=== PATIENT | female | born 1985 | race African-American/Black ===

== ENCOUNTER 2016-12-06 09:52 | Emergency (ER) | payer OTHER ==
[2016-12-06] MEDS ORDERED: IBUPROFEN 800 MG TAB As Ordered ONE (11:15)
[2016-12-06 12:26] LABS: BASO % 0.1 % (0.0-1.0); EOS % 1.1 % (0.0-3.0); LARGE UNSTAINED CELL # 0.1 K/mm3 (0.0-0.4); LARGE UNSTAINED CELL % 2.1 % (0.0-4.0); LYMPH # 0.5 K/mm3 (1.5-4.5); LYMPH % 14.4 % (24.0-44.0); MEAN CORPUSCULAR HEMOGLOBIN 29.9 pg (27.0-33.0); MEAN CORPUSCULAR HGB CONC 32.2 g/dl (32.0-36.5); MEAN CORPUSCULAR VOLUME 92.9 fl (80.0-96.0); MONO # 0.3 K/mm3 (0.0-0.8); MONO % 9.4 % (0.0-5.0); NEUTROPHILS # 2.3 K/mm3 (1.8-7.7); NEUTROPHILS % 72.8 % (36.0-66.0); PLATELET COUNT, AUTOMATED 188 k/mm3 (150-450); RED CELL DISTRIBUTION WIDTH 13.2 % (11.5-14.5); WHITE BLOOD COUNT 3.1 K/mm3 (4.0-10.0)
[2016-12-06 12:40] LABS: ANION GAP 7 MEQ/L (8-16); BLOOD UREA NITROGEN 7 MG/DL (7-18); CALCIUM LEVEL 8.6 MG/DL (8.5-10.1); CARBON DIOXIDE LEVEL 26 MEQ/L (21-32); CHLORIDE LEVEL 106 MEQ/L (98-107); CREATININE FOR GFR 0.74 MG/DL (0.55-1.02); GLOMERULAR FILTRATION RATE > 60.0 (>60); GLUCOSE, FASTING 88 MG/DL (70-105); POTASSIUM SERUM 4.3 MEQ/L (3.5-5.1); SODIUM LEVEL 139 MEQ/L (136-145)
--- NOTE | 2016-12-06 14:57 | EDDOCDS ---
Nurse's Notes [facility] Name: Hiwot Grimaldo Age: 31 yrs Sex: Female : 1985 Arrival Date: 12/06/2016 Time: 09:52 Bed PD Private MD: JUAN MANUEL Subramanian Diagnosis: Other ovarian cysts;Fever, unspecified-viral illness Presentation: 12/06 10:02 Presenting complaint: Patient states: pain in vagina and all over body. Cannot eat. hs1 Symptoms for 3 days. Adult Sepsis Screening: The patient does not have new or worsening altered mentation. Patient's respiratory rate is less than 22. Systolic blood pressure is greater than 100. Patient has a qSOFA score of 0- Negative Sepsis Screen. Suicide/Homicide risk assessment- the patient denies having any suicidal and/or homicidal ideations and does not present with any other emotional, behavioral or mental health complaints. Status: The patient is a dependent. Transition of care: patient was not received from another setting of care. 10:02 Acuity: ADAN Level 4 hs1 10:02 Method Of Arrival: Walkin/Carried/Asstd hs1 Triage Assessment: 10:04 General: Appears in no apparent distress, Behavior is appropriate for age. Pain: hs1 Location: all over and vagina Pain currently is 8 out of 10 on a pain scale. Pt Declines HIV testing. Respiratory: Airway is patent Reports cough that is productive. : Reports pain in vagina. Derm: Skin is pink, warm & dry. normal. 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 Tylenol 325 mg Oral tab 2 tabs every 4-6 hours (Last dose: 12/05/2016 21:00) - PMHx: none; - PSHx: none; - Social history: Smoking status: Patient states was never smoker of tobacco. No barriers to communication noted, The patient speaks fluent Cambodian, Speaks appropriately for age. - Family history: Not pertinent. - : The pt / caregiver states he / she is not on anticoagulants. Home medication list is obtained from the patient. - Exposure Risk Screening:: None identified. Screenin:55 Screening information is obtained from the patient. Fall risk: No risks identified. mlb1 Assistance ADL's: requires no assistance with activities of daily living. Abuse/DV Screen: The patient / caregiver reports he/she is: not in a situation that causes fear, pain or injury. Nutritional screening: No deficits noted. Advance Directives: Currently, there is no health care proxy. home support is adequate. Assessment: 11:22 General: Appears in no apparent distress, well nourished, well groomed, Behavior is ttb appropriate for age, cooperative, pleasant, quiet. Neurological: Level of Consciousness is awake, alert. Respiratory: Airway is patent Respiratory effort is even, unlabored, Reports cough that is. Derm: Skin is normal. 14:55 General: Appears in no apparent distress, comfortable, Behavior is appropriate for age, mlb1 cooperative. Pain: Denies pain. Neurological: No deficits noted. Respiratory: Airway is patent Respiratory effort is even, unlabored. Vital Signs: 09:54 BP 139 / 79 RA Sitting (auto/reg); Pulse 84; Resp 20; Temp 101.1(O); Pulse Ox 100% on jrd R/A; Weight 81.65 kg (R); Height 5 ft. 7 in. (170.18 cm); Pain 8/10; 14:55 BP 129 / 77; Pulse 84; Resp 16; Temp 98.0(T); Pulse Ox 98% on R/A; Pain 0/10; mlb1 09:54 Body Mass Index 28.19 (81.65 kg, 170.18 cm) [facility] Vitals: 09:54 Log In Time: December 06, 2016 at 09:45. [facility] ED Course: 09:53 Patient visited by Xavier Starr PCA. jrd 09:53 Patient moved to Waiting jrd 09:54 [facility]. jrd 09:55 Patient visited by Xavier Starr PCA. jrd 09:55 Patient moved to Pre RCE jrd 10:03 Triage Initiated hs1 11:04 Patient moved to Triage 1 ct3 11:18 Urine Culture Sent. ttb 11:18 Urinalysis Sent. ttb 11:22 Patient visited by Helen Riddle RN. ttb 11:23 Patient visited by Helen Riddle RN. ttb 11:28 [facility] ar2 11:28 Kit Smith MD is Attending Physician. ar2 11:28 Patient visited by Estevan López PA-C. ar2 11:57 Patient moved to PD mlb1 11:59 -Influenza A&B Rapid Antigen - Nose Sent. ttb 12:05 Patient visited by Helen Riddle RN. ttb 12:45 Patient visited by Lacey Strange PCA. ct3 12:47 [facility] Payment Agreement was scanned into [employer] and attached to record. mm15 13:15 Patient visited by Lacey Strange PCA. ct3 13:31 GC & Chlamydia Amplification Sent. ct3 13:31 Wet Prep Sent. ct3 13:57 Patient moved to Ultrasound sm5 14:23 Patient moved to PD sm5 14:25 Patient visited by Lacey Strange PCA. ct3 14:48 [facility] [place] Physician. ar2 14:56 No IV's were initiated during this patient's visit. No procedures done that require mlb1 assistance. 14:57 Patient visited by Desmond Bernal RN. mlb1 14:57 The patient / caregiver is instructed regarding the plan of care and ED course. mlb1 Administered Medications: 11:15 Drug: Ibuprofen 800 mg [ibuprofen 800 mg tablet (1 tabs)] Route: PO; ttb Point of Care Testing: Urine : 11:17 hCG Reading: Negative; Control Reading: Positive; ttb Ranges: Order Results: Lab Order: Urinalysis; SPEC'M 12/06/16 11:11 Test: APPEARANCE, URINE; Value: CLEAR; Range: CLEAR; Status: F Test: COLOR, URINE; Value: YELLOW; Range: YELLOW; Status: F Test: PH,URINE; Value: 7.0; Range: 5.0-9.0; Units: UNITS; Status: F Test: SPECIFIC GRAVITY URINE AUTO; Value: 1.023; Range: 1.002-1.035; Status: F Test: PROTEIN, URINE AUTO; Value: 1+; Range: NEGATIVE; Abnormal: Above high normal; Units: mg/dL; Status: F Test: GLUCOSE, URINE (UA) AUTO; Value: NEGATIVE; Range: NEGATIVE; Units: mg/dL; Status: F Test: KETONE, URINE AUTO; Value: NEGATIVE; Range: NEGATIVE; Units: mg/dL; Status: F Test: UROBILINOGEN, URINE AUTO; Value: 0.2; Range: 0.0-2.0; Units: mg/dL; Status: F Test: BILIRUBIN, URINE AUTO; Value: NEGATIVE; Range: NEGATIVE; Status: F Test: NITRITE, URINE AUTO; Value: NEGATIVE; Range: NEGATIVE; Status: F Test: LEUKOCYTE ESTERASE, URINE AUTO; Value: NEGATIVE; Range: NEGATIVE; Status: F Test: BLOOD, URINE BLOOD; Value: NEGATIVE; Range: NEGATIVE; Status: F Test: WBC, URINE AUTO; Value: 0; Range: 0-3; Units: /HPF; Status: F Test: RBC, URINE AUTO; Value: 1; Range: 0-3; Units: /HPF; Status: F Test: BACTERIA, URINE AUTO; Value: NEGATIVE; Range: NEGATIVE; Status: F Test: SQUAMOUS EPITHELIAL CELL UR AU; Value: 1; Range: 0-6; Units: /HPF; Status: F Test: MUCUS, URINE; Value: SMALL; Range: NEGATIVE; Status: F Test: HYALINE CAST, URINE AUTO; Value: 0; Range: 0-1; Units: /LPF; Status: F Lab Order: -Influenza A&B Rapid Antigen - Nose; SPEC'M 12/06/16 11:57 Test: INFLUENZA A RAPID SCR by ICA; Value: INFLUENZA A RESULTS NEGATIVE; Status: F Test: INFLUENZA A RAPID SCR by ICA; Value: Comments:; Status: F Test: INFLUENZA B RAPID SCR by ICA; Value: INFLUENZA B RESULTS NEGATIVE; Status: F Test Note: ; The Influenza test is a direct rapid immunoassay for the qualitative detection of Influenza viral antigen. Cell culture (Viral Culture) testing should be considered to confirm NEGATIVE results and to assist in detecting other viruses that can provide similar clinical symptoms. Please contact the lab within 24 hours ([phone]) if confirmatory testing is desired. Lab Order: CBC with Diff; SPEC'M 12/06/16 12:01 Test: WHITE BLOOD COUNT; Value: 3.1; Range: 4.0-10.0; Abnormal: Below low normal; Units: K/mm3; Status: F Test: RED BLOOD COUNT; Value: 3.67; Range: 4.00-5.40; Abnormal: Below low normal; Units: M/mm3; Status: F Test: HEMOGLOBIN; Value: 11.0; Range: 12.0-16.0; Abnormal: Below low normal; Units: g/dl; Status: F Test: HEMATOCRIT; Value: 34.1; Range: 36.0-47.0; Abnormal: Below low normal; Units: %; Status: F Test: MEAN CORPUSCULAR VOLUME; Value: 92.9; Range: 80.0-96.0; Units: fl; Status: F Test: MEAN CORPUSCULAR HEMOGLOBIN; Value: 29.9; Range: 27.0-33.0; Units: pg; Status: F Test: MEAN CORPUSCULAR HGB CONC; Value: 32.2; Range: 32.0-36.5; Units: g/dl; Status: F Test: RED CELL DISTRIBUTION WIDTH; Value: 13.2; Range: 11.5-14.5; Units: %; Status: F Test: PLATELET COUNT, AUTOMATED; Value: 188; Range: 150-450; Units: k/mm3; Status: F Test: NEUTROPHILS %; Value: 72.8; Range: 36.0-66.0; Abnormal: Above high normal; Units: %; Status: F Test: LYMPH %; Value: 14.4; Range: 24.0-44.0; Abnormal: Below low normal; Units: %; Status: F Test: MONO %; Value: 9.4; Range: 0.0-5.0; Abnormal: Above high normal; Units: %; Status: F Test: EOS %; Value: 1.1; Range: 0.0-3.0; Units: %; Status: F Test: BASO %; Value: 0.1; Range: 0.0-1.0; Units: %; Status: F Test: LARGE UNSTAINED CELL %; Value: 2.1; Range: 0.0-4.0; Units: %; Status: F Test: NEUTROPHILS #; Value: 2.3; Range: 1.8-7.7; Units: K/mm3; Status: F Test: LYMPH #; Value: 0.5; Range: 1.5-4.5; Abnormal: Below low normal; Units: K/mm3; Status: F Test: MONO #; Value: 0.3; Range: 0.0-0.8; Units: K/mm3; Status: F Test: EOS #; Value: 0.0; Range: 0.0-0.50; Units: K/mm3; Status: F Test: BASO #; Value: 0.0; Range: 0.0-0.2; Units: K/mm3; Status: F Test: LARGE UNSTAINED CELL #; Value: 0.1; Range: 0.0-0.4; Units: K/mm3; Status: F Lab Order: MED Profile; SPEC'M 12/06/16 12:01 Test: GLUCOSE, FASTING; Value: 88; Range: 70-105; Units: MG/DL; Status: F Test: BLOOD UREA NITROGEN; Value: 7; Range: 7-18; Units: MG/DL; Status: F Test: CREATININE FOR GFR; Value: 0.74; Range: 0.55-1.02; Units: MG/DL; Status: F Test: GLOMERULAR FILTRATION RATE; Value: > 60.0; Range: >60; Status: F Test: SODIUM LEVEL; Value: 139; Range: 136-145; Units: MEQ/L; Status: F Test: POTASSIUM SERUM; Value: 4.3; Range: 3.5-5.1; Units: MEQ/L; Status: F Test: CHLORIDE LEVEL; Value: 106; Range: 98-107; Units: MEQ/L; Status: F Test: CARBON DIOXIDE LEVEL; Value: 26; Range: 21-32; Units: MEQ/L; Status: F Test: ANION GAP; Value: 7; Range: 8-16; Abnormal: Below low normal; Units: MEQ/L; Status: F Test: CALCIUM LEVEL; Value: 8.6; Range: 8.5-10.1; Units: MG/DL; Status: F Test Note: ; Units are mL/min/1.73 m2 Chronic Kidney Disease Staging per NKF: Stage I & II GFR >=60 Normal to Mildly Decreased Stage III GFR 30-59 Moderately Decreased Stage IV GFR 15-29 Severely Decreased Stage V GFR <15 Very Little GFR Left ESRD GFR <15 on NANOTECHNOLOGIST Lab Order: Wet Prep; SPEC'12/06/16 13:28 Test: WET PREP; Value: WET PREP RESULT; Status: F Test: WET PREP; Value: MODERATE EPITHELIAL CELLS PRESENT; Status: F Test: WET PREP; Value: MANY SHORT RODS PRESENT; Status: F Outcome: 14:48 Discharge ordered by Provider. ar2 14:56 Discharge Assessment: Patient awake, alert and oriented x 3. No cognitive and/or mlb1 functional deficits noted. Patient verbalized understanding of disposition instructions. Discharge Assessment: patient administered narcotics - no. The following High Risk Discharge criteria are identified:. Discharged to home ambulatory, with family. Condition: good. Discharge instructions given to patient, Instructed on discharge instructions, follow up and referral plans. medication usage, Demonstrated understanding of instructions, medications, Pt was receptive of discharge instructions/ teaching. Prescriptions given X 1. Ultrasound Study completed. Property sent home with patient. 14:57 Patient left the ED. mlb1 Signatures: Miracle Garcia sm5 Desmond Bernal RN RN mlb1 Estevan Lpóez, PA-C PA-C ar2 Sondra Mc RN RN hs1 Lacey Strange, MEDICAL ASSEMBLY MEDICAL ASSEMBLY ct3 Helen Riddle RN RN ttb Loraine Agosto mm15 Xavier Starr, MEDICAL ASSEMBLY MEDICAL ASSEMBLY jrd [facility]
--- NOTE | 2016-12-06 14:57 | EDDOCDS ---
Physician Documentation [facility] Name: Hiwot Grimaldo Age: 31 yrs Sex: Female : 1985 Arrival Date: 12/06/2016 Time: 09:52 Bed PD Private MD: JUAN MANUEL Subramanian Disposition: 12/06/16 14:48 Discharged to Home/Self Care. Impression: Other ovarian cysts, Fever, unspecified - viral illness. - Condition is Stable. - Discharge Instructions: Ovarian Cyst, Viral Infections. - Prescriptions for Ibuprofen 800 mg Oral Tablet - take 1 tablet by ORAL route every 8 hours As needed take with food; 30 tablet. - Medication Reconciliation, Local Pharmacy Hours form. - Follow up: JUAN MANUEL Subramanian; When: Call to arrange an appointment; Reason: Recheck today's complaints. - Problem is new. - Symptoms are unchanged. Historical: - Allergies: no known allergies; - Home Meds: 1. Tylenol 325 mg Oral tab 2 tabs every 4-6 hours (Last dose: 12/05/2016 21:00) - PMHx: none; - PSHx: none; - Social history: Smoking status: Patient states was never smoker of tobacco. No barriers to communication noted, The patient speaks fluent Kittitian, Speaks appropriately for age. - Family history: Not pertinent. - : The pt / caregiver states he / she is not on anticoagulants. Home medication list is obtained from the patient. - Exposure Risk Screening:: None identified. 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 7 in. (170.18 cm); Pain 8/10; 14:55 BP 129 / 77; Pulse 84; Resp 16; Temp 98.0(T); Pulse Ox 98% on R/A; Pain 0/10; mlb1 09:54 Body Mass Index 28.19 (81.65 kg, 170.18 cm) jrd MDM: 10:06 UCG by Nursing ordered. dt4 10:07 Ibuprofen 800 mg PO once ordered. dt4 10:08 Urinalysis Ordered. EDMS 10:08 Urine Culture Ordered. EDMS 11:38 Urinalysis Reviewed. ar2 11:49 Obtain sample by nasopharyngeal swab ordered. ar2 11:50 CBC with Diff Ordered. EDMS 11:50 MED Profile Ordered. EDMS 11:50 -Influenza A&B Rapid Antigen - Nose Ordered. EDMS 12:17 Financial registration complete. mm15 12:34 Set up pelvic ordered. ar2 12:35 Wet Prep Ordered. EDMS 12:35 GC & Chlamydia Amplification Ordered. EDMS 12:47 [facility] Payment Agreement was scanned into [employer] and attached to record. mm15 13:18 CBC with Diff Reviewed. ar2 13:18 MED Profile Reviewed. ar2 13:18 -Influenza A&B Rapid Antigen - Nose Reviewed. ar2 13:34 -US Pelvic Non-Ob Complete Ordered. EDMS 13:34 DUPLEX SCAN LIMITED (DOPPLER)+US Ordered. EDMS 14:26 Transvaginal NON- US Ordered. EDMS 14:49 Wet Prep Reviewed. ar2 Point of Care Testing: Urine : 11:17 hCG Reading: Negative; Control Reading: Positive; ttb Ranges: Administered Medications: 11:15 Drug: Ibuprofen 800 mg [ibuprofen 800 mg tablet (1 tabs)] Route: PO; ttb Signatures: Dispatcher [employer] EDMD Desmond Bernal RN RN mlb1 Estevan López PA-C PAWesley ar2 Sondra Mc RN RN hs1 Loraine Agosto mm15 Nieves Jefferson PA-C PA-C dt4 Helen Riddle RN ttb The chart was reviewed and I authenticate all verbal orders and agree with the evaluation and treatment provided.Attachments: 12:47 [facility] Payment Agreement mm15 MTDD
--- NOTE | 2016-12-06 15:19 | REP ---
PELVIC SONOGRAPHY: HISTORY: Left adnexal pain. FINDINGS: Transabdominal and transvaginal scanning are performed. Uterine dimensions are enlarged at 10.0 x 5.6 x 6.1 cm. Endometrial echo is 0.9 cm thick. Uterine texture is heterogeneous, but no measurable fibroid is seen. Visualized bladder drummond are smooth. There is a trace of fluid in the posterior cul-de-sac and adjacent to the right ovary. Right ovarian dimensions are 4.2 x 2.5 x 3.5 cm. Its Doppler flow is normal with resistive index 0.58. There is a 2.1 x 1.6 x 1.6 cm hypoechoic cyst in the right ovary, question hemorrhagic cyst. The left ovary is normal measuring 3.5 x 2.4 x 3.0 cm. IMPRESSION: Enlarged heterogeneous uterus. No measurable fibroid. 2.1 cm hypoechoic cystic area right ovary. Minimal fluid in the cul-de-sac. No other significant abnormality. Signed by Adriel Oliveira MD 12/06/2016 04:34 P
--- NOTE | 2016-12-08 15:57 | EDDOCDS ---
Physician Documentation [facility] Name: Hiwot Grimaldo Age: 31 yrs Sex: Female : 1985 Arrival Date: 12/06/2016 Time: 09:52 Bed PD Private MD: JUAN MANUEL Subramanian Disposition: 12/06/16 14:48 Discharged to Home/Self Care. Impression: Other ovarian cysts, Fever, unspecified - viral illness. - Condition is Stable. - Discharge Instructions: Ovarian Cyst, Viral Infections. - Prescriptions for Ibuprofen 800 mg Oral Tablet - take 1 tablet by ORAL route every 8 hours As needed take with food; 30 tablet. - Medication Reconciliation, Local Pharmacy Hours form. - Follow up: JUAN MANUEL Subramanian; When: Call to arrange an appointment; Reason: Recheck today's complaints. - Problem is new. - Symptoms are unchanged. Historical: - Allergies: no known allergies; - Home Meds: 1. Tylenol 325 mg Oral tab 2 tabs every 4-6 hours (Last dose: 12/05/2016 21:00) - PMHx: none; - PSHx: none; - Social history: Smoking status: Patient states was never smoker of tobacco. No barriers to communication noted, The patient speaks fluent German, Speaks appropriately for age. - Family history: Not pertinent. - : The pt / caregiver states he / she is not on anticoagulants. Home medication list is obtained from the patient. - Exposure Risk Screening:: None identified. ACCOUNT RESOLUTION SPECIALIST: 12/06 10:05 LMP 11/17/2016 hs1 Vital Signs: 09:54 BP 139 / 79 RA Sitting (auto/reg); Pulse 84; Resp 20; Temp 101.1(O); Pulse Ox 100% on jrd R/A; Weight 81.65 kg / 180.01 lbs (R); Height 5 ft. 7 in. (170.18 cm); Pain 8/10; 14:55 BP 129 / 77; Pulse 84; Resp 16; Temp 98.0(T); Pulse Ox 98% on R/A; Pain 0/10; mlb1 09:54 Body Mass Index 28.19 (81.65 kg, 170.18 cm) jrd MDM: 10:06 UCG by Nursing ordered. dt4 10:07 Ibuprofen 800 mg PO once ordered. dt4 10:08 Urinalysis Ordered. EDMS 10:08 Urine Culture Ordered. EDMS 11:38 Urinalysis Reviewed. ar2 11:49 Obtain sample by nasopharyngeal swab ordered. ar2 11:50 CBC with Diff Ordered. EDMS 11:50 MED Profile Ordered. EDMS 11:50 -Influenza A&B Rapid Antigen - Nose Ordered. EDMS 12:17 Financial registration complete. mm15 12:34 Set up pelvic ordered. ar2 12:35 Wet Prep Ordered. EDMS 12:35 GC & Chlamydia Amplification Ordered. EDMS 12:47 [facility] Payment Agreement was scanned into [employer] and attached to record. mm15 13:18 CBC with Diff Reviewed. ar2 13:18 MED Profile Reviewed. ar2 13:18 -Influenza A&B Rapid Antigen - Nose Reviewed. ar2 13:34 -US Pelvic Non-Ob Complete Ordered. EDMS 13:34 DUPLEX SCAN LIMITED (DOPPLER)+US Ordered. EDMS 14:26 Transvaginal NON- US Ordered. EDMS 14:49 Wet Prep Reviewed. ar2 12/07 10:29 T-Sheet-- Draft Copy was scanned into [employer] and attached to record. gb Point of Care Testing: Urine : 12/06 11:17 hCG Reading: Negative; Control Reading: Positive; ttb Ranges: Administered Medications: 11:15 Drug: Ibuprofen 800 mg [ibuprofen 800 mg tablet (1 tabs)] Route: PO; ttb Signatures: Dispatcher [employer] EDFL Maria Luz Selby, Reg Reg gb Desmond Bernal RN RN mlb1 Estevan López PA-C PA-C ar2 Sondra Mc RN RN hs1 Loraine Agosto mm15 Nieves Jefferson PA-C PAWesley dt4 Helen Riddle RN ttb The chart was reviewed and I authenticate all verbal orders and agree with the evaluation and treatment provided.Attachments: 12:47 [facility] Payment Agreement mm15 12/07 10:29 T-Sheet-- Draft Copy gb Chart Complete MTDD
--- NOTE | 2016-12-08 15:57 | EDDOCDS ---
Nurse's Notes [facility] Name: Hiwot Grimaldo Age: 31 yrs Sex: Female : 1985 Arrival Date: 12/06/2016 Time: 09:52 Bed PD Private MD: JUAN MANUEL Subramanian Diagnosis: Other ovarian cysts;Fever, unspecified-viral illness Presentation: 12/06 10:02 Presenting complaint: Patient states: pain in vagina and all over body. Cannot eat. hs1 Symptoms for 3 days. Adult Sepsis Screening: The patient does not have new or worsening altered mentation. Patient's respiratory rate is less than 22. Systolic blood pressure is greater than 100. Patient has a qSOFA score of 0- Negative Sepsis Screen. Suicide/Homicide risk assessment- the patient denies having any suicidal and/or homicidal ideations and does not present with any other emotional, behavioral or mental health complaints. Status: The patient is a dependent. Transition of care: patient was not received from another setting of care. 10:02 Acuity: ADAN Level 4 hs1 10:02 Method Of Arrival: Walkin/Carried/Asstd hs1 Triage Assessment: 10:04 General: Appears in no apparent distress, Behavior is appropriate for age. Pain: hs1 Location: all over and vagina Pain currently is 8 out of 10 on a pain scale. Pt Declines HIV testing. Respiratory: Airway is patent Reports cough that is productive. : Reports pain in vagina. Derm: Skin is pink, warm & dry. normal. 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 Tylenol 325 mg Oral tab 2 tabs every 4-6 hours (Last dose: 12/05/2016 21:00) - PMHx: none; - PSHx: none; - Social history: Smoking status: Patient states was never smoker of tobacco. No barriers to communication noted, The patient speaks fluent Bangladeshi, Speaks appropriately for age. - Family history: Not pertinent. - : The pt / caregiver states he / she is not on anticoagulants. Home medication list is obtained from the patient. - Exposure Risk Screening:: None identified. Screenin:55 Screening information is obtained from the patient. Fall risk: No risks identified. mlb1 Assistance ADL's: requires no assistance with activities of daily living. Abuse/DV Screen: The patient / caregiver reports he/she is: not in a situation that causes fear, pain or injury. Nutritional screening: No deficits noted. Advance Directives: Currently, there is no health care proxy. home support is adequate. Assessment: 11:22 General: Appears in no apparent distress, well nourished, well groomed, Behavior is ttb appropriate for age, cooperative, pleasant, quiet. Neurological: Level of Consciousness is awake, alert. Respiratory: Airway is patent Respiratory effort is even, unlabored, Reports cough that is. Derm: Skin is normal. 14:55 General: Appears in no apparent distress, comfortable, Behavior is appropriate for age, mlb1 cooperative. Pain: Denies pain. Neurological: No deficits noted. Respiratory: Airway is patent Respiratory effort is even, unlabored. Vital Signs: 09:54 BP 139 / 79 RA Sitting (auto/reg); Pulse 84; Resp 20; Temp 101.1(O); Pulse Ox 100% on jrd R/A; Weight 81.65 kg (R); Height 5 ft. 7 in. (170.18 cm); Pain 8/10; 14:55 BP 129 / 77; Pulse 84; Resp 16; Temp 98.0(T); Pulse Ox 98% on R/A; Pain 0/10; mlb1 09:54 Body Mass Index 28.19 (81.65 kg, 170.18 cm) [facility] Vitals: 09:54 Log In Time: December 06, 2016 at 09:45. [facility] ED Course: 09:53 Patient visited by Xavier Starr PCA. jrd 09:53 Patient moved to Waiting jrd 09:54 Marilynn [facility] is Private Physician. jrd 09:55 Patient visited by Xavier Starr PCA. jrd 09:55 Patient moved to Pre RCE jrd 10:03 Triage Initiated hs1 11:04 Patient moved to Triage 1 ct3 11:18 Urine Culture Sent. ttb 11:18 Urinalysis Sent. ttb 11:22 Patient visited by Helen Riddle RN. ttb 11:23 Patient visited by Helen Riddle RN. ttb 11:28 [facility]ev[facility] ar2 11:28 Kit Smith MD is Attending Physician. ar2 11:28 Patient visited by Estevan López PA-C. ar2 11:57 Patient moved to PD mlb1 11:59 -Influenza A&B Rapid Antigen - Nose Sent. ttb 12:05 Patient visited by Helen Riddle RN. ttb 12:45 Patient visited by Lacey Strange PCA. ct3 12:47 [facility] Payment Agreement was scanned into [employer] and attached to record. mm15 13:15 Patient visited by Lacey Strange PCA. ct3 13:31 GC & Chlamydia Amplification Sent. ct3 13:31 Wet Prep Sent. ct3 13:57 Patient moved to Ultrasound sm5 14:23 Patient moved to PD sm5 14:25 Patient visited by Lacey Strange PCA. ct3 14:48 Marilynn [facility] is Referral Physician. ar2 14:56 No IV's were initiated during this patient's visit. No procedures done that require mlb1 assistance. 14:57 Patient visited by Desmond Bernal RN. mlb1 14:57 The patient / caregiver is instructed regarding the plan of care and ED course. mlb1 15:33 -US Pelvic Non-Ob Complete Returned. EDMS 15:33 DUPLEX SCAN LIMITED (DOPPLER)+US Returned. EDMS 15:33 Transvaginal NON- US Returned. EDMS 12/07 10:29 T-Sheet-- Draft Copy was scanned into [email or web address] and attached to record. gb Administered Medications: 12/06 11:15 Drug: Ibuprofen 800 mg [ibuprofen 800 mg tablet (1 tabs)] Route: PO; ttb Point of Care Testing: Urine : 11:17 hCG Reading: Negative; Control Reading: Positive; ttb Ranges: Order Results: Lab Order: Urinalysis; SPEC'M 12/06/16 11:11 Test: APPEARANCE, URINE; Value: CLEAR; Range: CLEAR; Status: F Test: COLOR, URINE; Value: YELLOW; Range: YELLOW; Status: F Test: PH,URINE; Value: 7.0; Range: 5.0-9.0; Units: UNITS; Status: F Test: SPECIFIC GRAVITY URINE AUTO; Value: 1.023; Range: 1.002-1.035; Status: F Test: PROTEIN, URINE AUTO; Value: 1+; Range: NEGATIVE; Abnormal: Above high normal; Units: mg/dL; Status: F Test: GLUCOSE, URINE (UA) AUTO; Value: NEGATIVE; Range: NEGATIVE; Units: mg/dL; Status: F Test: KETONE, URINE AUTO; Value: NEGATIVE; Range: NEGATIVE; Units: mg/dL; Status: F Test: UROBILINOGEN, URINE AUTO; Value: 0.2; Range: 0.0-2.0; Units: mg/dL; Status: F Test: BILIRUBIN, URINE AUTO; Value: NEGATIVE; Range: NEGATIVE; Status: F Test: NITRITE, URINE AUTO; Value: NEGATIVE; Range: NEGATIVE; Status: F Test: LEUKOCYTE ESTERASE, URINE AUTO; Value: NEGATIVE; Range: NEGATIVE; Status: F Test: BLOOD, URINE BLOOD; Value: NEGATIVE; Range: NEGATIVE; Status: F Test: WBC, URINE AUTO; Value: 0; Range: 0-3; Units: /HPF; Status: F Test: RBC, URINE AUTO; Value: 1; Range: 0-3; Units: /HPF; Status: F Test: BACTERIA, URINE AUTO; Value: NEGATIVE; Range: NEGATIVE; Status: F Test: SQUAMOUS EPITHELIAL CELL UR AU; Value: 1; Range: 0-6; Units: /HPF; Status: F Test: MUCUS, URINE; Value: SMALL; Range: NEGATIVE; Status: F Test: HYALINE CAST, URINE AUTO; Value: 0; Range: 0-1; Units: /LPF; Status: F Lab Order: Urine Culture; SPEC'M 12/06/16 11:11 Test: URINE CULTURE; Value: <EXTERNAL COMMENT eCWMed> FULL REPORT IN LAB NOTES (eCW and Medent).; Status: F Test: URINE CULTURE; Value: URINE CULTURE RESULT NO GROWTH; Status: F Lab Order: -Influenza A&B Rapid Antigen - Nose; SPEC'M 12/06/16 11:57 Test: INFLUENZA A RAPID SCR by ICA; Value: INFLUENZA A RESULTS NEGATIVE; Status: F Test: INFLUENZA A RAPID SCR by ICA; Value: Comments:; Status: F Test: INFLUENZA B RAPID SCR by ICA; Value: INFLUENZA B RESULTS NEGATIVE; Status: F Test Note: ; The Influenza test is a direct rapid immunoassay for the qualitative detection of Influenza viral antigen. Cell culture (Viral Culture) testing should be considered to confirm NEGATIVE results and to assist in detecting other viruses that can provide similar clinical symptoms. Please contact the lab within 24 hours ([phone]) if confirmatory testing is desired. Lab Order: CBC with Diff; SPEC'M 12/06/16 12:01 Test: WHITE BLOOD COUNT; Value: 3.1; Range: 4.0-10.0; Abnormal: Below low normal; Units: K/mm3; Status: F Test: RED BLOOD COUNT; Value: 3.67; Range: 4.00-5.40; Abnormal: Below low normal; Units: M/mm3; Status: F Test: HEMOGLOBIN; Value: 11.0; Range: 12.0-16.0; Abnormal: Below low normal; Units: g/dl; Status: F Test: HEMATOCRIT; Value: 34.1; Range: 36.0-47.0; Abnormal: Below low normal; Units: %; Status: F Test: MEAN CORPUSCULAR VOLUME; Value: 92.9; Range: 80.0-96.0; Units: fl; Status: F Test: MEAN CORPUSCULAR HEMOGLOBIN; Value: 29.9; Range: 27.0-33.0; Units: pg; Status: F Test: MEAN CORPUSCULAR HGB CONC; Value: 32.2; Range: 32.0-36.5; Units: g/dl; Status: F Test: RED CELL DISTRIBUTION WIDTH; Value: 13.2; Range: 11.5-14.5; Units: %; Status: F Test: PLATELET COUNT, AUTOMATED; Value: 188; Range: 150-450; Units: k/mm3; Status: F Test: NEUTROPHILS %; Value: 72.8; Range: 36.0-66.0; Abnormal: Above high normal; Units: %; Status: F Test: LYMPH %; Value: 14.4; Range: 24.0-44.0; Abnormal: Below low normal; Units: %; Status: F Test: MONO %; Value: 9.4; Range: 0.0-5.0; Abnormal: Above high normal; Units: %; Status: F Test: EOS %; Value: 1.1; Range: 0.0-3.0; Units: %; Status: F Test: BASO %; Value: 0.1; Range: 0.0-1.0; Units: %; Status: F Test: LARGE UNSTAINED CELL %; Value: 2.1; Range: 0.0-4.0; Units: %; Status: F Test: NEUTROPHILS #; Value: 2.3; Range: 1.8-7.7; Units: K/mm3; Status: F Test: LYMPH #; Value: 0.5; Range: 1.5-4.5; Abnormal: Below low normal; Units: K/mm3; Status: F Test: MONO #; Value: 0.3; Range: 0.0-0.8; Units: K/mm3; Status: F Test: EOS #; Value: 0.0; Range: 0.0-0.50; Units: K/mm3; Status: F Test: BASO #; Value: 0.0; Range: 0.0-0.2; Units: K/mm3; Status: F Test: LARGE UNSTAINED CELL #; Value: 0.1; Range: 0.0-0.4; Units: K/mm3; Status: F Lab Order: MED Profile; [facility] 12/06/16 12:01 Test: GLUCOSE, FASTING; Value: 88; Range: 70-105; Units: MG/DL; Status: F Test: BLOOD UREA NITROGEN; Value: 7; Range: 7-18; Units: MG/DL; Status: F Test: CREATININE FOR GFR; Value: 0.74; Range: 0.55-1.02; Units: MG/DL; Status: F Test: GLOMERULAR FILTRATION RATE; Value: > 60.0; Range: >60; Status: F Test: SODIUM LEVEL; Value: 139; Range: 136-145; Units: MEQ/L; Status: F Test: POTASSIUM SERUM; Value: 4.3; Range: 3.5-5.1; Units: MEQ/L; Status: F Test: CHLORIDE LEVEL; Value: 106; Range: 98-107; Units: MEQ/L; Status: F Test: CARBON DIOXIDE LEVEL; Value: 26; Range: 21-32; Units: MEQ/L; Status: F Test: ANION GAP; Value: 7; Range: 8-16; Abnormal: Below low normal; Units: MEQ/L; Status: F Test: CALCIUM LEVEL; Value: 8.6; Range: 8.5-10.1; Units: MG/DL; Status: F Test Note: ; Units are mL/min/1.73 m2 Chronic Kidney Disease Staging per NKF: Stage I & II GFR >=60 Normal to Mildly Decreased Stage III GFR 30-59 Moderately Decreased Stage IV GFR 15-29 Severely Decreased Stage V GFR <15 Very Little GFR Left ESRD GFR <15 on AUTHOR AGENT Lab Order: Wet Prep; SPEC'M 12/06/16 13:28 Test: WET PREP; Value: WET PREP RESULT; Status: F Test: WET PREP; Value: MODERATE EPITHELIAL CELLS PRESENT; Status: F Test: WET PREP; Value: MANY SHORT RODS PRESENT; Status: F Lab Order: GC & Chlamydia Amplification; SPEC'M 12/06/16 13:28 Test: CHLAMYDIA DNA AMPLIFICATION; Value: NEGATIVE; Range: NEGATIVE; Status: F Test: GC DNA AMPLIFICATION; Value: NEGATIVE; Range: NEGATIVE; Status: F Radiology Order: -US Pelvic Non-Ob Complete Test: -US Pelvic Non-Ob Complete REASON FOR EXAMINATION: left adenexal pain; PELVIC SONOGRAPHY:; ; HISTORY: Left adnexal pain.; ; FINDINGS: Transabdominal and transvaginal scanning are performed. Uterine; dimensions are enlarged at 10.0 x 5.6 x 6.1 cm. Endometrial echo is 0.9 cm; thick. Uterine texture is heterogeneous, but no measurable fibroid is seen.; Visualized bladder drummond are smooth. There is a trace of fluid in the posterior; cul-de-sac and adjacent to the right ovary. Right ovarian dimensions are 4.2 x; 2.5 x 3.5 cm. Its Doppler flow is normal with resistive index 0.58. There is a; 2.1 x 1.6 x 1.6 cm hypoechoic cyst in the right ovary, question hemorrhagic; cyst.; ; The left ovary is normal measuring 3.5 x 2.4 x 3.0 cm.; ; IMPRESSION:; ; Enlarged heterogeneous uterus. No measurable fibroid. 2.1 cm hypoechoic cystic; area right ovary. Minimal fluid in the cul-de-sac. No other significant; abnormality.; ; ; Signed by; Adriel Oliveira MD 12/06/2016 04:34 P; Radiology Order: DUPLEX SCAN LIMITED (DOPPLER)+US Test: DUPLEX SCAN LIMITED (DOPPLER)+US REASON FOR EXAMINATION: left adenexal pain; PELVIC SONOGRAPHY:; ; HISTORY: Left adnexal pain.; ; FINDINGS: Transabdominal and transvaginal scanning are performed. Uterine; dimensions are enlarged at 10.0 x 5.6 x 6.1 cm. Endometrial echo is 0.9 cm; thick. Uterine texture is heterogeneous, but no measurable fibroid is seen.; Visualized bladder drummond are smooth. There is a trace of fluid in the posterior; cul-de-sac and adjacent to the right ovary. Right ovarian dimensions are 4.2 x; 2.5 x 3.5 cm. Its Doppler flow is normal with resistive index 0.58. There is a; 2.1 x 1.6 x 1.6 cm hypoechoic cyst in the right ovary, question hemorrhagic; cyst.; ; The left ovary is normal measuring 3.5 x 2.4 x 3.0 cm.; ; IMPRESSION:; ; Enlarged heterogeneous uterus. No measurable fibroid. 2.1 cm hypoechoic cystic; area right ovary. Minimal fluid in the cul-de-sac. No other significant; abnormality.; ; ; Signed by; Adriel Oliveira MD 12/06/2016 04:34 P; Radiology Order: Transvaginal NON- US Test: Transvaginal NON- US REASON FOR EXAMINATION: EVAL UTERUS AND OVARIES; PELVIC SONOGRAPHY:; ; HISTORY: Left adnexal pain.; ; FINDINGS: Transabdominal and transvaginal scanning are performed. Uterine; dimensions are enlarged at 10.0 x 5.6 x 6.1 cm. Endometrial echo is 0.9 cm; thick. Uterine texture is heterogeneous, but no measurable fibroid is seen.; Visualized bladder drummond are smooth. There is a trace of fluid in the posterior; cul-de-sac and adjacent to the right ovary. Right ovarian dimensions are 4.2 x; 2.5 x 3.5 cm. Its Doppler flow is normal with resistive index 0.58. There is a; 2.1 x 1.6 x 1.6 cm hypoechoic cyst in the right ovary, question hemorrhagic; cyst.; ; The left ovary is normal measuring 3.5 x 2.4 x 3.0 cm.; ; IMPRESSION:; ; Enlarged heterogeneous uterus. No measurable fibroid. 2.1 cm hypoechoic cystic; area right ovary. Minimal fluid in the cul-de-sac. No other significant; abnormality.; ; ; Signed by; Adriel Oliveira MD 12/06/2016 04:34 P; Outcome: 14:48 Discharge ordered by Provider. ar2 14:56 Discharge Assessment: Patient awake, alert and oriented x 3. No cognitive and/or mlb1 functional deficits noted. Patient verbalized understanding of disposition instructions. Discharge Assessment: patient administered narcotics - no. The following High Risk Discharge criteria are identified:. Discharged to home ambulatory, with family. Condition: good. Discharge instructions given to patient, Instructed on discharge instructions, follow up and referral plans. medication usage, Demonstrated understanding of instructions, medications, Pt was receptive of discharge instructions/ teaching. Prescriptions given X 1. Ultrasound Study completed. Property sent home with patient. 14:57 Patient left the ED. mlb1 Signatures: Dispatcher [employer] EDMS Maria Luz Selby, Reg Reg gb Miracle Garcia sm5 Desmond Bernal RN RN mlb1 Estevan López, PA-C PA-C ar2 Sondra Mc, RN RN hs1 Lacey Strange, C PROGRAMMER C PROGRAMMER ct3 Helen Riddle RN RN ttb Loraine Agosto mm15 Xavier Starr, C PROGRAMMER C PROGRAMMER jrd Chart Complete MTDD
--- NOTE | 2016-12-08 15:57 | EDDOCDS ---
Physician Documentation [facility] Name: Hiwot Grimaldo Age: 31 yrs Sex: Female : 1985 Arrival Date: 12/06/2016 Time: 09:52 Bed PD Private MD: JUAN MANUEL Subramanian Disposition: 12/06/16 14:48 Discharged to Home/Self Care. Impression: Other ovarian cysts, Fever, unspecified - viral illness. - Condition is Stable. - Discharge Instructions: Ovarian Cyst, Viral Infections. - Prescriptions for Ibuprofen 800 mg Oral Tablet - take 1 tablet by ORAL route every 8 hours As needed take with food; 30 tablet. - Medication Reconciliation, Local Pharmacy Hours form. - Follow up: JUAN MANUEL Subramanian; When: Call to arrange an appointment; Reason: Recheck today's complaints. - Problem is new. - Symptoms are unchanged. Historical: - Allergies: no known allergies; - Home Meds: 1. Tylenol 325 mg Oral tab 2 tabs every 4-6 hours (Last dose: 12/05/2016 21:00) - PMHx: none; - PSHx: none; - Social history: Smoking status: Patient states was never smoker of tobacco. No barriers to communication noted, The patient speaks fluent [place], Speaks appropriately for age. - Family history: Not pertinent. - : The pt / caregiver states he / she is not on anticoagulants. Home medication list is obtained from the patient. - Exposure Risk Screening:: None identified. ADMISSIONS REPRESENTATIVE: 12/06 10:05 LMP 11/17/2016 hs1 Vital Signs: 09:54 BP 139 / 79 RA Sitting (auto/reg); Pulse 84; Resp 20; Temp 101.1(O); Pulse Ox 100% on jrd R/A; Weight 81.65 kg / 180.01 lbs (R); Height 5 ft. 7 in. (170.18 cm); Pain 8/10; 14:55 BP 129 / 77; Pulse 84; Resp 16; Temp 98.0(T); Pulse Ox 98% on R/A; Pain 0/10; mlb1 09:54 Body Mass Index 28.19 (81.65 kg, 170.18 cm) jrd MDM: 10:06 UCG by Nursing ordered. dt4 10:07 Ibuprofen 800 mg PO once ordered. dt4 10:08 Urinalysis Ordered. EDMS 10:08 Urine Culture Ordered. EDMS 11:38 Urinalysis Reviewed. ar2 11:49 Obtain sample by nasopharyngeal swab ordered. ar2 11:50 CBC with Diff Ordered. EDMS 11:50 MED Profile Ordered. EDMS 11:50 -Influenza A&B Rapid Antigen - Nose Ordered. EDMS 12:17 Financial registration complete. mm15 12:34 Set up pelvic ordered. ar2 12:35 Wet Prep Ordered. EDMS 12:35 GC & Chlamydia Amplification Ordered. EDMS 12:47 [facility] Payment Agreement was scanned into [employer] and attached to record. mm15 13:18 CBC with Diff Reviewed. ar2 13:18 MED Profile Reviewed. ar2 13:18 -Influenza A&B Rapid Antigen - Nose Reviewed. ar2 13:34 -US Pelvic Non-Ob Complete Ordered. EDMS 13:34 DUPLEX SCAN LIMITED (DOPPLER)+US Ordered. EDMS 14:26 Transvaginal NON- US Ordered. EDMS 14:49 Wet Prep Reviewed. ar2 12/07 10:29 T-Sheet-- Draft Copy was scanned into [employer] and attached to record. gb Point of Care Testing: Urine : 12/06 11:17 hCG Reading: Negative; Control Reading: Positive; ttb Ranges: Administered Medications: 11:15 Drug: Ibuprofen 800 mg [ibuprofen 800 mg tablet (1 tabs)] Route: PO; ttb Signatures: Dispatcher [employer] EDMT Maria Luz Selby, Reg Reg gb Desmond Bernal RN RN mlb1 Estevan López PA-C PA-C ar2 Sondra Mc RN RN hs1 Loraine Agosto mm15 Nieves Jefferson PA-C PAWesley dt4 Helen Riddle RN ttb The chart was reviewed and I authenticate all verbal orders and agree with the evaluation and treatment provided.Attachments: 12:47 [facility] Payment Agreement mm15 12/07 10:29 T-Sheet-- Draft Copy gb Chart Complete MTDD
== END 2016-12-06 14:57 | disposition home or self-care (01) ==
LOC: M ED 09:52
DX: N83.201 Unspecified ovarian cyst, right side (principal); B34.9 Viral infection, unspecified

== ENCOUNTER 2017-01-30 20:33 | Emergency (ER) | payer OTHER ==
[~2017-01-30] VITALS: Ht 170.2 cm; Wt 77.1 kg
[2017-01-30] MEDS ORDERED: MORPHINE 2 MG/ML 1ML SYRINGE IV ONE (21:45)
[2017-01-30] MEDS ORDERED: METOCLOPRAMIDE INJ 10MG/2ML VIAL (J2765) IV ONE (21:45)
[2017-01-30] MEDS ORDERED: NS 1,000 ML IV ONE (21:45)
--- NOTE | 2017-01-30 22:30 | REPUSA ---
Clinical history: Pain. Findings: Real-time transabdominal ultrasound images of the pelvis were obtained. There is a single i ntrauterine gestation. The crown rump length measures 0.4 cm. heart rate measures 109 bpm. Ther e is no evidence of a subchorionic hemorrhage. An anteverted uterus is noted, measuring 11.3 x 7.3 x 8.4 cm. The uterus demonstrates normal echotexture and echogenicity. The endometrial stripe measures 3 mm and is within normal limits. The right ovary measures 3.0 x 3.1 x 2.3 cm. The left ovary measure s 3.2 x 4.1 x 2.7 cm. No adnexal masses are seen. Color Doppler flow is seen within both ovaries. The re is no evidence of free fluid. Impression: Single live intrauterine measuring 6 weeks 1 day, with estimated due date of . No gross abnormalities.
[2017-01-30 22:36] LABS: MEAN CORPUSCULAR HEMOGLOBIN 30.8 pg (27.0-33.0); MEAN CORPUSCULAR HGB CONC 33.3 g/dl (32.0-36.5); MEAN CORPUSCULAR VOLUME 92.6 fl (80.0-96.0); PLATELET COUNT, AUTOMATED 116 k/mm3 (150-450); WHITE BLOOD COUNT 4.7 K/mm3 (4.0-10.0)
[2017-01-30 22:52] LABS: EOSINOPHILS 1 % (0-5)
[2017-01-30 22:53] LABS: PLATELET CLUMPS MODERATE AMT
[2017-01-30 23:10] LABS: ALBUMIN 3.9 GM/DL (3.2-5.2); ALBUMIN/GLOBULIN RATIO 1.11 (1.00-1.93); ALKALINE PHOSPHATASE 53 U/L (45-117); ALT/SGPT 19 U/L (12-78); ANION GAP 6 MEQ/L (8-16); AST/SGOT 19 U/L (15-37); BILIRUBIN,TOTAL 0.2 MG/DL (0.2-1.0); BLOOD UREA NITROGEN 10 MG/DL (7-18); CALCIUM LEVEL 9.1 MG/DL (8.5-10.1); CARBON DIOXIDE LEVEL 24 MEQ/L (21-32); CHLORIDE LEVEL 108 MEQ/L (98-107); CREATININE FOR GFR 0.57 MG/DL (0.55-1.02); GLOMERULAR FILTRATION RATE > 60.0 (>60); GLUCOSE, FASTING 93 MG/DL (70-105); POTASSIUM SERUM 3.9 MEQ/L (3.5-5.1); SODIUM LEVEL 138 MEQ/L (136-145); TOTAL PROTEIN 7.4 GM/DL (6.4-8.2)
[2017-01-30 23:36] VITALS: BP 112/65
[2017-01-30] MEDS ORDERED: PYRI25TA3 PO (23:45)
[2017-01-30] MEDS ORDERED: UNIS25TA2 PO (23:45)
== END 2017-01-30 23:50 | disposition home or self-care (01) ==
LOC: M ED 22:16
DX: R10.11 Right upper quadrant pain (principal); R11.0 Nausea; Z32.01 Encounter for pregnancy test, result positive
CPT/HCPCS: 76801; 80053; 81001; 81025; 83690; 84702; 85025; 93976; 96374; 96375; 99283; J2765

== ENCOUNTER 2017-04-23 12:23 | Emergency (ER) | payer OTHER, MEDICAID ==
[~2017-04-23] VITALS: Ht 167.6 cm; Wt 85.5 kg
[~2017-04-23 12:23] MED LIST: PYRI25TA3 PO; UNIS25TA2 PO
[2017-04-23] MEDS ORDERED: AMOX500C PO (12:29)
[2017-04-23 13:27] VITALS: BP 122/81
== END 2017-04-23 13:30 | disposition home or self-care (01) ==
LOC: M ED 13:18
DX: J02.9 Acute pharyngitis, unspecified (principal); R51 Headache; H92.02 Otalgia, left ear; M79.1 Myalgia; Z79.2 Long term (current) use of antibiotics